=== PATIENT | female | born 1935 | race African-American/Black ===

== ENCOUNTER 2016-06-28 | Outpatient (CLI) | payer MEDICARE | END 2016-06-28 09:53 | disposition EMS.NT ==

== ENCOUNTER 2016-07-13 06:18 | Outpatient (CLI) | payer MEDICARE | END 2016-07-13 06:19 | disposition home or self-care (01) | DX: L93.2 Other local lupus erythematosus (principal); N05.9 Unspecified nephritic syndrome with unspecified morphologic changes; D70.9 Neutropenia, unspecified; D47.2 Monoclonal gammopathy; M10.00 Idiopathic gout, unspecified site; R80.9 Proteinuria, unspecified; E83.30 Disorder of phosphorus metabolism, unspecified; N25.81 Secondary hyperparathyroidism of renal origin ==

== ENCOUNTER 2016-08-18 10:21 | Outpatient (CLI) | payer MEDICARE | END 2016-08-18 10:22 | disposition home or self-care (01) | DX: N05.9 Unspecified nephritic syndrome with unspecified morphologic changes (principal); M10.00 Idiopathic gout, unspecified site ==

== ENCOUNTER 2016-12-27 14:57 | Outpatient (CLI) | payer MEDICARE ==
[2016-12-27 19:06] LABS: HGB - HEMOGLOBIN 11.1 g/dL (12.0-16.0); MEAN CORPUSCULAR HGB CONC 32.8 g/dL (32.0-36.0); MEAN CORPUSCULAR VOLUME 88.6 fL (81.0-99.0); MEAN PLATELET VOLUME 9.3 fL (7.9-10.8); RED BLOOD COUNT 3.83 10^6/uL (4.20-5.40); RED CELL DISTRIBUTION WIDTH 16.3 % (12.0-15.0)
[2016-12-27 19:18] LABS: CALCIUM 9.5 mg/dL (8.5-10.3); CREATININE 1.8 mg/dL (0.4-1.0); POTASSIUM 4.5 mmol/L (3.5-5.0)
== END 2016-12-27 14:58 | disposition home or self-care (01) ==
LOC: LAB.N 14:57
PROVIDERS: ATTEND Internal Medicine Nephrology
DX: N05.9 Unspecified nephritic syndrome with unspecified morphologic changes (principal); D70.9 Neutropenia, unspecified; D50.0 Iron deficiency anemia secondary to blood loss (chronic)
CPT/HCPCS: 36415; 80048; 82728; 83540; 84466

== ENCOUNTER 2017-05-14 10:05 | Outpatient (CLI) | payer MEDICARE ==
[2017-05-14 13:06] LABS: CREATININE 2.1 mg/dL (0.4-1.0)
== END 2017-05-14 10:06 | disposition home or self-care (01) ==
LOC: LAB.N 10:05
PROVIDERS: ATTEND Internal Medicine Nephrology
DX: N05.9 Unspecified nephritic syndrome with unspecified morphologic changes (principal); I50.32 Chronic diastolic (congestive) heart failure
CPT/HCPCS: 36415; 80048; 83880

== ENCOUNTER 2017-09-12 08:00 | Outpatient (CLI) | payer MEDICARE ==
[2017-09-12 18:59] LABS: HGB - HEMOGLOBIN 10.5 g/dL (12.0-16.0); MEAN CORPUSCULAR HEMOGLOBIN 28.3 pg (27.0-31.0); MEAN CORPUSCULAR HGB CONC 31.8 g/dL (32.0-36.0); MEAN CORPUSCULAR VOLUME 88.9 fL (81.0-99.0); RED BLOOD COUNT 3.71 10^6/uL (4.20-5.40); RED CELL DISTRIBUTION WIDTH 18.2 % (12.0-15.0); WHITE BLOOD COUNT 7.3 x10^3/uL (4.8-10.8)
[2017-09-12 19:21] LABS: CALCIUM 9.5 mg/dL (8.5-10.3); PHOSPHORUS 3.7 mg/dL (2.5-4.6)
[2017-09-12 19:41] LABS: CREATININE,URINE 137.3 mg/dL
== END 2017-09-12 08:01 | disposition home or self-care (01) ==
LOC: LAB.N 08:00
PROVIDERS: ATTEND Internal Medicine Nephrology
DX: N05.9 Unspecified nephritic syndrome with unspecified morphologic changes (principal); D70.9 Neutropenia, unspecified; D63.1 Anemia in chronic kidney disease; R80.9 Proteinuria, unspecified; E83.30 Disorder of phosphorus metabolism, unspecified; N25.81 Secondary hyperparathyroidism of renal origin
CPT/HCPCS: 36415; 80048; 82570; 83970; 84100; 84156

== ENCOUNTER 2017-12-18 08:00 | Outpatient (CLI) | payer MEDICARE ==
[2017-12-18 14:00] LABS: BASOPHILS % (AUTO) 0.2 %; EOSINOPHILS # (AUTO) 0.2 10^3/uL (0.0-0.7); EOSINOPHILS % (AUTO) 2.9 %; LYMPHOCYTES # (AUTO) 1.1 10^3/uL (1.5-3.5); LYMPHOCYTES % (AUTO) 15.2 %; MEAN CORPUSCULAR HEMOGLOBIN 29.2 pg (27.0-31.0); MEAN CORPUSCULAR HGB CONC 32.6 g/dL (32.0-36.0); MEAN CORPUSCULAR VOLUME 89.5 fL (81.0-99.0); MEAN PLATELET VOLUME 8.8 fL (7.9-10.8); MONOCYTES # (AUTO) 0.5 10^3/uL (0.0-1.0); MONOCYTES % (AUTO) 6.3 %; NEUTROPHILS # (AUTO) 5.6 10^3/uL (1.5-6.6); NEUTROPHILS % (AUTO) 75.4 %; PLT - PLATELET COUNT 230 10^3/uL (130-450); RED BLOOD COUNT 3.44 10^6/uL (4.20-5.40); RED CELL DISTRIBUTION WIDTH 18.6 % (12.0-15.0); WHITE BLOOD COUNT 7.4 x10^3/uL (4.8-10.8)
[2017-12-18 14:15] LABS: ALBUMIN 3.7 g/dL (3.2-5.5); BILIRUBIN,TOTAL 0.7 mg/dL (0.2-1.0); CALCIUM 9.1 mg/dL (8.5-10.3); CREATININE 1.5 mg/dL (0.4-1.0); MAGNESIUM 2.1 mg/dL (1.7-2.8); PHOSPHORUS 3.3 mg/dL (2.5-4.6); TOTAL PROTEIN 7.4 g/dL (6.7-8.2)
== END 2017-12-18 08:01 | disposition home or self-care (01) ==
LOC: LAB.N 08:00
PROVIDERS: ATTEND Family Medicine
DX: I10 Essential (primary) hypertension (principal); E78.5 Hyperlipidemia, unspecified; I25.10 Atherosclerotic heart disease of native coronary artery without angina pectoris; E11.9 Type 2 diabetes mellitus without complications
CPT/HCPCS: 36415; 80053; 82306; 83735; 84100; 85025

== ENCOUNTER 2018-05-13 08:00 | Outpatient (CLI) | payer MEDICARE | END 2018-05-13 23:59 | LOC: LAB.N 08:00 | PROVIDERS: ATTEND Internal Medicine Nephrology | DX: Z53.9 Procedure and treatment not carried out, unspecified reason (principal) | CPT/HCPCS: 80048; 83540; 84466; 84550; 85027 ==

== ENCOUNTER 2018-05-14 08:00 | Outpatient (CLI) | payer MEDICARE ==
[2018-05-14 12:44] LABS: HGB - HEMOGLOBIN 11.6 g/dL (12.0-16.0); MEAN CORPUSCULAR HEMOGLOBIN 29.5 pg (27.0-31.0); MEAN CORPUSCULAR HGB CONC 33.1 g/dL (32.0-36.0); MEAN CORPUSCULAR VOLUME 88.9 fL (81.0-99.0); MEAN PLATELET VOLUME 8.9 fL (7.9-10.8); RED BLOOD COUNT 3.93 10^6/uL (4.20-5.40); WHITE BLOOD COUNT 6.8 x10^3/uL (4.8-10.8)
[2018-05-14 12:58] LABS: CALCIUM 9.5 mg/dL (8.5-10.3); CREATININE 2.1 mg/dL (0.4-1.0); URIC ACID 2.7 mg/dL (2.6-7.2)
== END 2018-05-14 23:59 ==
LOC: LAB.N 08:00
PROVIDERS: ATTEND Internal Medicine Nephrology
DX: N05.9 Unspecified nephritic syndrome with unspecified morphologic changes (principal); D70.9 Neutropenia, unspecified; D63.1 Anemia in chronic kidney disease; M10.00 Idiopathic gout, unspecified site; D50.0 Iron deficiency anemia secondary to blood loss (chronic)
CPT/HCPCS: 36415; 80048; 83540; 84466; 84550; 85027

== ENCOUNTER 2018-10-03 08:00 | Outpatient (CLI) | payer MEDICARE ==
[2018-10-03 12:51] LABS: BASOPHILS % (AUTO) 0.3 %; EOSINOPHILS # (AUTO) 0.1 10^3/uL (0.0-0.7); EOSINOPHILS % (AUTO) 1.2 %; HGB - HEMOGLOBIN 12.1 g/dL (12.0-16.0); LYMPHOCYTES # (AUTO) 1.4 10^3/uL (1.5-3.5); LYMPHOCYTES % (AUTO) 17.7 %; MEAN CORPUSCULAR HEMOGLOBIN 29.1 pg (27.0-31.0); MEAN CORPUSCULAR HGB CONC 32.3 g/dL (32.0-36.0); MEAN PLATELET VOLUME 8.7 fL (7.9-10.8); MONOCYTES # (AUTO) 0.4 10^3/uL (0.0-1.0); MONOCYTES % (AUTO) 4.9 %; NEUTROPHILS # (AUTO) 6.1 10^3/uL (1.5-6.6); NEUTROPHILS % (AUTO) 75.9 %; PLT - PLATELET COUNT 266 10^3/uL (130-450); RED BLOOD COUNT 4.17 10^6/uL (4.20-5.40); RED CELL DISTRIBUTION WIDTH 17.9 % (12.0-15.0); WHITE BLOOD COUNT 8.1 x10^3/uL (4.8-10.8)
[2018-10-03 13:09] LABS: HB2 TOTAL 12.7 g/dL; HEMOGLOBIN A1C 0.56 g/dL; HEMOGLOBIN A1C % 6.2 % (4.6-6.2)
[2018-10-03 13:14] LABS: CALCIUM 9.9 mg/dL (8.5-10.3)
== END 2018-10-03 23:59 | disposition home or self-care (01) ==
LOC: LAB.N 08:00
PROVIDERS: ATTEND Family Medicine
DX: E11.22 Type 2 diabetes mellitus with diabetic chronic kidney disease (principal); N18.3 Chronic kidney disease, stage 3 (moderate); D63.1 Anemia in chronic kidney disease
CPT/HCPCS: 36415; 80048; 83036; 85025

== ENCOUNTER 2018-10-31 11:10 | Outpatient (CLI) | payer MEDICARE ==
[2018-10-31 18:55] LABS: HGB - HEMOGLOBIN 11.3 g/dL (12.0-16.0); MEAN CORPUSCULAR HEMOGLOBIN 31.3 pg (27.0-31.0); MEAN CORPUSCULAR VOLUME 94.7 fL (81.0-99.0); MEAN PLATELET VOLUME 10.9 fL (7.9-10.8); RED BLOOD COUNT 3.61 10^6/uL (4.20-5.40); RED CELL DISTRIBUTION WIDTH 16.7 % (12.0-15.0); WHITE BLOOD COUNT 6.6 x10^3/uL (4.8-10.8)
[2018-10-31 19:14] LABS: CALCIUM 9.7 mg/dL (8.5-10.3); CREATININE 1.8 mg/dL (0.4-1.0); URIC ACID 3.7 mg/dL (2.6-7.2)
[2018-10-31 19:39] LABS: CREATININE,URINE 142.5 mg/dL
[2018-10-31 19:48] LABS: FERRITIN 132.5 ng/mL (11.0-306.8)
== END 2018-10-31 11:45 | disposition home or self-care (01) ==
LOC: LAB.N 11:10
PROVIDERS: ATTEND Internal Medicine Nephrology
DX: N05.9 Unspecified nephritic syndrome with unspecified morphologic changes (principal); D63.1 Anemia in chronic kidney disease; D50.0 Iron deficiency anemia secondary to blood loss (chronic); M10.00 Idiopathic gout, unspecified site; R80.9 Proteinuria, unspecified; N25.81 Secondary hyperparathyroidism of renal origin; E83.30 Disorder of phosphorus metabolism, unspecified
CPT/HCPCS: 36415; 80048; 82570; 82728; 83540; 83970; 84100; 84156; 84466; 84550; 85027

== ENCOUNTER 2019-05-14 08:00 | Outpatient (CLI) | payer MEDICARE ==
[2019-05-14 18:11] LABS: HGB - HEMOGLOBIN 11.6 g/dL (12.0-16.0); MEAN CORPUSCULAR HEMOGLOBIN 28.4 pg (27.0-31.0); MEAN CORPUSCULAR HGB CONC 30.6 g/dL (32.0-36.0); MEAN CORPUSCULAR VOLUME 92.9 fL (81.0-99.0); MEAN PLATELET VOLUME 10.7 fL (7.9-10.8); RED BLOOD COUNT 4.08 10^6/uL (4.20-5.40); RED CELL DISTRIBUTION WIDTH 17.1 % (12.0-15.0); WHITE BLOOD COUNT 7.4 x10^3/uL (4.8-10.8)
[2019-05-14 18:18] LABS: CALCIUM 9.9 mg/dL (8.5-10.3); CREATININE 1.7 mg/dL (0.4-1.0)
== END 2019-05-14 23:59 | disposition home or self-care (01) ==
LOC: LAB.N 08:00
PROVIDERS: ATTEND Internal Medicine Nephrology
DX: N05.9 Unspecified nephritic syndrome with unspecified morphologic changes (principal); D70.9 Neutropenia, unspecified; N18.9 Chronic kidney disease, unspecified; D63.1 Anemia in chronic kidney disease
CPT/HCPCS: 36415; 80048; 85027

== ENCOUNTER 2019-10-28 13:58 | Outpatient (CLI) | payer MEDICARE ==
[2019-10-28 14:23] LABS: HGB - HEMOGLOBIN 9.8 g/dL (12.0-16.0); MEAN CORPUSCULAR HEMOGLOBIN 30.1 pg (27.0-31.0); MEAN CORPUSCULAR HGB CONC 32.3 g/dL (32.0-36.0); MEAN CORPUSCULAR VOLUME 92.9 fL (81.0-99.0); MEAN PLATELET VOLUME 9.7 fL (7.9-10.8); RED BLOOD COUNT 3.26 10^6/uL (4.20-5.40); RED CELL DISTRIBUTION WIDTH 15.3 % (12.0-15.0)
[2019-10-28 14:57] LABS: CALCIUM 8.8 mg/dL (8.5-10.3); CREATININE 2.2 mg/dL (0.4-1.0)
== END 2019-10-28 13:59 | disposition home or self-care (01) ==
LOC: LAB 13:58
PROVIDERS: ATTEND Internal Medicine Nephrology
DX: N05.9 Unspecified nephritic syndrome with unspecified morphologic changes (principal); D70.9 Neutropenia, unspecified; D63.1 Anemia in chronic kidney disease; E83.30 Disorder of phosphorus metabolism, unspecified; N25.81 Secondary hyperparathyroidism of renal origin
CPT/HCPCS: 36415; 80048; 83970; 84100; 85027

== ENCOUNTER 2019-12-09 10:53 | Outpatient (CLI) | payer MEDICARE ==
[2019-12-09 11:17] LABS: HGB - HEMOGLOBIN 9.9 g/dL (12.0-16.0); MEAN CORPUSCULAR HEMOGLOBIN 30.3 pg (27.0-31.0); MEAN CORPUSCULAR HGB CONC 32.4 g/dL (32.0-36.0); MEAN CORPUSCULAR VOLUME 93.6 fL (81.0-99.0); MEAN PLATELET VOLUME 10.6 fL (7.9-10.8); RED BLOOD COUNT 3.27 10^6/uL (4.20-5.40); RED CELL DISTRIBUTION WIDTH 14.6 % (12.0-15.0); WHITE BLOOD COUNT 6.3 x10^3/uL (4.8-10.8)
[2019-12-09 11:34] LABS: CALCIUM 9.6 mg/dL (8.5-10.3); CREATININE 1.7 mg/dL (0.4-1.0)
[2019-12-09 12:38] LABS: FOLATE > 49.60 ng/mL (5.90 - >24.8)
== END 2019-12-09 10:54 | disposition home or self-care (01) ==
LOC: LAB 10:53
PROVIDERS: ATTEND Internal Medicine Nephrology
DX: N05.9 Unspecified nephritic syndrome with unspecified morphologic changes (principal); D64.9 Anemia, unspecified; I50.32 Chronic diastolic (congestive) heart failure; D70.9 Neutropenia, unspecified; D63.1 Anemia in chronic kidney disease; D50.0 Iron deficiency anemia secondary to blood loss (chronic)
CPT/HCPCS: 36415; 80048; 82607; 82746; 83540; 83880; 84466; 85027

== ENCOUNTER 2020-01-15 11:45 | Outpatient (CLI) | payer MEDICARE ==
[2020-01-15 12:32] LABS: CREATININE 2.3 mg/dL (0.4-1.0)
== END 2020-01-15 11:46 | disposition home or self-care (01) ==
LOC: LAB 11:45
PROVIDERS: ATTEND Internal Medicine Nephrology
DX: N05.9 Unspecified nephritic syndrome with unspecified morphologic changes (principal); I50.32 Chronic diastolic (congestive) heart failure
CPT/HCPCS: 36415; 80048; 83880

== ENCOUNTER 2020-02-07 15:40 | Outpatient (CLI) | payer MEDICARE | END 2020-02-07 15:41 | disposition short-term general hospital (02) | LOC: EMS 15:40 | PROVIDERS: ATTEND Surgery | DX: R06.02 Shortness of breath (principal); R06.09 Other forms of dyspnea | CPT/HCPCS: A0425; A0427 ==

== ENCOUNTER 2020-03-18 10:50 | Outpatient (CLI) | payer MEDICARE ==
[2020-03-18 11:20] LABS: CALCIUM 10.1 mg/dL (8.5-10.3); CREATININE 2.4 mg/dL (0.4-1.0)
== END 2020-03-18 10:51 | disposition home or self-care (01) ==
LOC: LAB 10:50
PROVIDERS: ATTEND Internal Medicine Nephrology
DX: I50.32 Chronic diastolic (congestive) heart failure (principal); N05.9 Unspecified nephritic syndrome with unspecified morphologic changes
CPT/HCPCS: 36415; 80048; 83880

== ENCOUNTER 2020-04-19 11:09 | Outpatient (CLI) | payer MEDICARE ==
[2020-04-19 11:57] LABS: BASOPHILS % (AUTO) 0.1 %; EOSINOPHILS # (AUTO) 0.2 10^3/uL (0.0-0.7); EOSINOPHILS % (AUTO) 2.1 %; HGB - HEMOGLOBIN 8.9 g/dL (12.0-16.0); LYMPHOCYTES # (AUTO) 1.4 10^3/uL (1.5-3.5); LYMPHOCYTES % (AUTO) 16.4 %; MEAN CORPUSCULAR HEMOGLOBIN 28.4 pg (27.0-31.0); MEAN CORPUSCULAR HGB CONC 29.9 g/dL (32.0-36.0); MEAN CORPUSCULAR VOLUME 95.2 fL (81.0-99.0); MEAN PLATELET VOLUME 10.7 fL (7.9-10.8); MONOCYTES # (AUTO) 0.7 10^3/uL (0.0-1.0); MONOCYTES % (AUTO) 7.6 %; NEUTROPHILS # (AUTO) 6.4 10^3/uL (1.5-6.6); NEUTROPHILS % (AUTO) 73.6 %; PLT - PLATELET COUNT 218 10^3/uL (130-450); RED BLOOD COUNT 3.13 10^6/uL (4.20-5.40); RED CELL DISTRIBUTION WIDTH 15.4 % (12.0-15.0); WHITE BLOOD COUNT 8.7 x10^3/uL (4.8-10.8)
[2020-04-19 12:19] LABS: CREATININE 2.4 mg/dL (0.4-1.0); PHOSPHORUS 3.1 mg/dL (2.5-4.6)
== END 2020-04-19 11:10 | disposition home or self-care (01) ==
LOC: LAB 11:09
PROVIDERS: ATTEND Internal Medicine Nephrology
DX: N05.9 Unspecified nephritic syndrome with unspecified morphologic changes (principal); D70.9 Neutropenia, unspecified; D63.1 Anemia in chronic kidney disease; N25.81 Secondary hyperparathyroidism of renal origin; E83.30 Disorder of phosphorus metabolism, unspecified; I50.32 Chronic diastolic (congestive) heart failure
CPT/HCPCS: 36415; 80048; 83880; 83970; 84100; 85025

== ENCOUNTER 2020-06-03 08:00 | Outpatient (CLI) | payer MEDICARE ==
[2020-06-03 13:43] LABS: MEAN CORPUSCULAR HEMOGLOBIN 29.9 pg (27.0-31.0); MEAN CORPUSCULAR HGB CONC 30.1 g/dL (32.0-36.0); MEAN CORPUSCULAR VOLUME 99.3 fL (81.0-99.0); MEAN PLATELET VOLUME 10.8 fL (7.9-10.8); RED BLOOD COUNT 3.01 10^6/uL (4.20-5.40); RED CELL DISTRIBUTION WIDTH 16.8 % (12.0-15.0); WHITE BLOOD COUNT 12.2 x10^3/uL (4.8-10.8)
[2020-06-03 14:06] LABS: CALCIUM 10.9 mg/dL (8.5-10.3); CREATININE 3.5 mg/dL (0.4-1.0)
[2020-06-03 14:20] LABS: FERRITIN 162.9 ng/mL (11.0-306.8)
== END 2020-06-03 23:59 | disposition home or self-care (01) ==
LOC: LAB 08:00
PROVIDERS: ATTEND Internal Medicine Nephrology
DX: N05.9 Unspecified nephritic syndrome with unspecified morphologic changes (principal); D70.9 Neutropenia, unspecified; D63.1 Anemia in chronic kidney disease; D50.0 Iron deficiency anemia secondary to blood loss (chronic); D64.9 Anemia, unspecified
CPT/HCPCS: 36415; 80048; 82607; 82728; 82746; 83540; 84466; 85027

== ENCOUNTER 2020-06-09 08:00 | Outpatient (CLI) | payer MEDICARE ==
[2020-06-09 12:23] LABS: CALCIUM 10.5 mg/dL (8.5-10.3); CREATININE 3.1 mg/dL (0.4-1.0)
== END 2020-06-09 23:59 | disposition home or self-care (01) ==
LOC: LAB 08:00
PROVIDERS: ATTEND Internal Medicine Nephrology
DX: N05.9 Unspecified nephritic syndrome with unspecified morphologic changes (principal)
CPT/HCPCS: 36415; 80048

== ENCOUNTER 2020-08-24 11:44 | Outpatient (CLI) | payer MEDICARE ==
[2020-08-24 12:30] LABS: HCT - HEMATOCRIT 32.2 % (37.0-47.0); HGB - HEMOGLOBIN 9.9 g/dL (12.0-16.0); MEAN CORPUSCULAR HEMOGLOBIN 29.6 pg (27.0-31.0); MEAN CORPUSCULAR HGB CONC 30.7 g/dL (32.0-36.0); MEAN CORPUSCULAR VOLUME 96.4 fL (81.0-99.0); MEAN PLATELET VOLUME 10.7 fL (7.9-10.8); RED BLOOD COUNT 3.34 10^6/uL (4.20-5.40); RED CELL DISTRIBUTION WIDTH 14.3 % (12.0-15.0); WHITE BLOOD COUNT 8.5 x10^3/uL (4.8-10.8)
[2020-08-24 12:46] LABS: CALCIUM 10.2 mg/dL (8.5-10.3); CREATININE 3.2 mg/dL (0.4-1.0); POTASSIUM 5.1 mmol/L (3.5-5.0)
== END 2020-08-24 11:45 | disposition home or self-care (01) ==
LOC: LAB 11:44
PROVIDERS: ATTEND Internal Medicine Nephrology
DX: N05.9 Unspecified nephritic syndrome with unspecified morphologic changes (principal); I50.32 Chronic diastolic (congestive) heart failure; D70.9 Neutropenia, unspecified; D63.1 Anemia in chronic kidney disease
CPT/HCPCS: 36415; 80048; 83880; 85027

== ENCOUNTER 2021-01-12 15:30 | Outpatient (CLI) | payer MEDICARE | END 2021-01-12 15:31 | disposition short-term general hospital (02) | LOC: EMS 15:30 | DX: R51.9 Headache, unspecified (principal); M54.2 Cervicalgia; M25.512 Pain in left shoulder; M79.632 Pain in left forearm; M25.552 Pain in left hip; M25.571 Pain in right ankle and joints of right foot; W01.190A Fall on same level from slipping, tripping and stumbling with subsequent striking against furniture, initial encounter; Y93.01 Activity, walking, marching and hiking; Y92.009 Unspecified place in unspecified non-institutional (private) residence as the place of occurrence of the external cause | CPT/HCPCS: A0425; A0429 ==

== ENCOUNTER 2021-01-28 12:37 | Outpatient (CLI) | payer MEDICARE ==
[2021-01-28 12:47] LABS: HCT - HEMATOCRIT 28.4 % (37.0-47.0); HGB - HEMOGLOBIN 8.7 g/dL (12.0-16.0); MEAN CORPUSCULAR HEMOGLOBIN 30.4 pg (27.0-31.0); MEAN CORPUSCULAR HGB CONC 30.6 g/dL (32.0-36.0); MEAN CORPUSCULAR VOLUME 99.3 fL (81.0-99.0); MEAN PLATELET VOLUME 10.2 fL (7.9-10.8); RED BLOOD COUNT 2.86 10^6/uL (4.20-5.40); WHITE BLOOD COUNT 5.7 x10^3/uL (4.8-10.8)
[2021-01-28 13:09] LABS: CALCIUM 9.9 mg/dL (8.5-10.3); CREATININE 2.8 mg/dL (0.4-1.0); PHOSPHORUS 3.1 mg/dL (2.5-4.6); POTASSIUM 4.8 mmol/L (3.5-5.0)
== END 2021-01-28 23:59 | disposition home or self-care (01) ==
LOC: LAB 12:37
PROVIDERS: ATTEND Internal Medicine Nephrology
DX: N05.9 Unspecified nephritic syndrome with unspecified morphologic changes (principal); D70.9 Neutropenia, unspecified; D63.1 Anemia in chronic kidney disease; N25.81 Secondary hyperparathyroidism of renal origin; E83.30 Disorder of phosphorus metabolism, unspecified
CPT/HCPCS: 36415; 80048; 83970; 84100; 85027